=== PATIENT | male | born 1955 | race Caucasian/White ===

== ENCOUNTER 2017-07-09 12:55 | Emergency (ER) | payer BC ==
--- NOTE | 2017-07-09 13:47 | Emergency Department Record ---
History of Present Illness - General Chief complaint: Lower Extremity Pain Stated complaint: KNEE INJURY Time Seen by Provider: 07/09/17 13:34 Source: Patient, Family Mode of Arrival: Ambulatory Limitations: No limitations - History of Present Illness Initial comments: 62 yo male presents with knee pain for 2 days. He was backing up and stepped in a hole and felt a pop. He has pain all over the knee. No numbness or weakness. MD Complaint: Extremity pain, Joint pain, Joint swelling Onset/Timin -: Hour(s) Location: Right, Knee History of Same: No Radiation: None Severity scale (1-10): 7 Quality: Dull, Sharp Consistency: Constant Improves with: Nothing Worsens with: Weight bearing Associated Symptoms: Denies other symptoms - Related Data Home Medications Medication Instructions Recorded Confirmed Last Taken Aspirin 81 mg PO DAILY 07/09/17 07/09/17 07/09/17 Allergies Allergy/AdvReac Type Severity Reaction Status Date / Time Sulfa (Sulfonamide Allergy Mild RASH Unverified 05/07/16 11:05 Antibiotics) novacaine Allergy Severe ANAPHYLAXIS Uncoded 05/07/16 11:05 Travel Screening - Travel/Exposure Within Last 30 Days Have you traveled within the last 30 days?: No - Travel/Exposure Within Last Year Have you traveled outside the [place] in the last year?: No - Additonal Travel Details Have you been exposed to anyone with a communicable illness?: No - Travel Symptoms Symptom Screening: None Review of Systems Constitutional: Denies: Chills, Fever, Malaise, Weakness Eyes: Denies: Eye discharge, Eye pain ENT: Denies: Congestion, Throat pain Respiratory: Denies: Cough Cardiovascular: Denies: Chest pain, Syncope Endocrine: Denies: Fatigue Gastrointestinal: Denies: Abdominal pain, Diarrhea, Nausea, Vomiting Genitourinary: Denies: Dysuria, Frequency, Hematuria Musculoskeletal: Reports: As per HPI, Arthralgia, Joint swelling. Denies: Back pain Skin: Denies: Bruising, Change in color, Rash Neurological: Denies: Confusion, Headache Psychiatric: Denies: Anxiety Hematological/Lymphatic: Denies: Blood Clots, Easy bleeding, Easy bruising, Swollen glands Past Medical History - SOCIAL HISTORY Smoking Status: Never smoker Alcohol Use: Occasional Drug Use: None - RESPIRATORY Hx Respiratory Disorders: Yes Hx Asthma: Yes - CARDIOVASCULAR Hx Cardio Disorders: Yes Hx Hypertension: Yes - NEURO Hx Neuro Disorders: No - GI Hx GI Disorders: No - Hx Genitourinary Disorders: No - ENDOCRINE Hx Endocrine Disorders: Yes Hx Thyroid Disease: Yes - MUSCULOSKELETAL Hx Musculoskeletal Disorders: No - PSYCH Hx Psych Problems: No - HEMATOLOGY/ONCOLOGY Hx Hematology/Oncology Disorders: No Family Medical History Any Significant Family History?: Yes Hx Heart Disease: Father, Brother/Sister Physical Exam - General General Appearance: Alert, Oriented x3, Cooperative, No acute distress Limitations: No limitations - Head Head exam: Atraumatic, Normal inspection - Eye Eye exam: Normal appearance. negative: Conjunctival injection, Periorbital swelling - ENT ENT exam: Normal exam Ear exam: Normal external inspection Nasal Exam: Normal inspection - Neck Neck exam: Normal inspection - Cardiovascular Cardiovascular Exam: Regular rate, Normal rhythm, Normal heart sounds - GI/Abdominal GI/Abdominal exam: Soft. negative: Tenderness - Rectal Rectal exam: Deferred - exam: Deferred - Extremities Extremities exam: Normal inspection, Full ROM, Joint swelling (very mild), Normal capillary refill, Tenderness Image of Full Body: 1 - mild tenderness, full ROM, no swelling or warmth - Back Back exam: Reports: Normal inspection - Neurological Neurological exam: Alert, Oriented X3 - Psychiatric Psychiatric exam: Normal affect, Normal mood - Skin Skin exam: Dry, Intact, Normal color, Warm. negative: Cyanosis, Diaphoretic, Erythema Course Vital Signs 07/09/17 13:12 Temperature 97.7 F Pulse Rate 55 L Respiratory 18 Rate Blood Pressure 165/106 Pulse Ox 98 - Reevaluation(s) Reevaluation #1: 07/09/17 14:46 XR with tri compartmental Degenerative chagnes, calcified loose bodies, no fracture DC to follow up with [facility] orthopedist He does not request pain medications He has crutches. Disposition Disposition: Discharge Clinical Impression: Knee sprain Qualifiers: Encounter type: initial encounter Involved ligament of knee: other ligament Laterality: right Qualified Code(s): S83.8X1A - Sprain of other specified parts of right knee, initial encounter Disposition: Home, Self-Care Condition: (1) Good Instructions: Knee Sprain (ED) Additional Instructions: Ice and elevate Use your crutches and brace for support and comfort Call your doctors tomorrow for close follow up Referrals: TARA MESA [] - Forms: Patient Portal Access Time of Disposition: 14:48 Quality - Quality Measures Quality Measures: N/A - Blood Pressure Screening Does Patient Have Any of the Following: No Blood Pressure Classification: Hypertensive Reading Systolic Measurement: 177 Diastolic Measurement: 101 Screening for High Blood Pressure: < Pre-Hypertensive BP, F/U Documented > [ [id number]] Pre-Hypertensive Follow-up Interventions: Referral to alternative/primary care provider.
--- NOTE | 2017-07-12 10:35 | RADIOLOGY REPORT ---
EXAM: RIGHT KNEE HISTORY: RIGHT KNEE PAIN STATUS POST INJURY. TECHNIQUE: Four views of the right knee were obtained. Comparison: None. FINDINGS: The bones appear intact. There is no fracture, dislocation, or joint effusion. There are mild tricompartmental arthritic changes. Chondrocalcinosis is noted within the medial and lateral compartments. A small ossified loose body is present along the posterior aspect of the medial compartment and measures 10 x 5 mm. IMPRESSION: 1. NO ACUTE OSSEOUS ABNORMALITY. 2. MILD TRICOMPARTMENTAL ARTHRITIC CHANGES WITH CHONDROCALCINOSIS AND SMALL OSSIFIED LOOSE BODY. JOB NUMBER: [id number] [facility]
== END 2017-07-09 15:10 | disposition home or self-care (01) ==
LOC: ER 12:55
DX: S83.8X1A Sprain of other specified parts of right knee, initial encounter (principal); X50.0XXA Overexertion from strenuous movement or load, initial encounter
CPT/HCPCS: 99283

== ENCOUNTER 2019-09-24 11:11 | Day surgery (SDC) | payer MEDICARE, OTHER ==
[2019-09-24] MEDS ORDERED: PROPOFOL 10 MG/ML VIAL IV ONE (11:12)
[2019-09-24] MEDS ORDERED: LIDOCAINE 2% MDV (20MG/ML) 20ML VIAL IV ONE (11:12)
--- NOTE | 2019-09-28 08:00 | Operative Note ---
OPERATION: COLONOSCOPY to the cecum. INDICATION: Colorectal cancer screening. The patient's last examination was 10 years ago. ANESTHESIA: Intravenous sedation was administered by the department of anesthesiology and included Diprivan titrated to effect. PROCEDURE: Following informed consent from this alert individual including a discussion of the risks and benefits of the procedure and an opportunity for the patient to ask questions, the patient was in the left lateral decubitus position. A digital rectal examination was performed. No abnormalities were noted. Following this, the Olympus [id number] video colonoscope was inserted into the rectum without resistance. The rectal mucosa had a normal appearance with normal folds and distensibility. The colonoscope was advanced up through the colon to the level of the cecum without difficulty. The cecum was defined by noting the appendiceal orifice and ileocecal valve. Overall, the colon preparation was good. From the base of the cecum, the colonoscope was slowly withdrawn. No polyps were noted throughout. The mucosa appeared normal throughout. Retroflexion in the rectum was endoscopically unremarkable. The instrument was straightened and removed. The patient tolerated the procedure well and was returned to the recovery area in stable condition. IMPRESSION: Normal colonoscopy to the cecum. RECOMMENDATIONS: The patient was advised to have recheck colonoscopy in 10 years' time or sooner if problems arise. Followup will otherwise be with Noemy Cardenas DO. As always, thank you for allowing me to participate in the care of your patient. TOOTIE
== END 2019-09-24 13:45 | disposition home or self-care (01) ==
LOC: HOP 11:11
PROVIDERS: ATTEND Internal Medicine Gastroenterology
DX: Z12.11 Encounter for screening for malignant neoplasm of colon (principal); J45.909 Unspecified asthma, uncomplicated; I10 Essential (primary) hypertension
CPT/HCPCS: 00812; G0121